=== PATIENT | male | born 1950 | race Caucasian/White ===

== ENCOUNTER 2020-12-18 13:55 | Emergency (ER) | payer MEDICARE, OTHER ==
--- NOTE | 2020-12-18 14:16 | EDM.PDOC ---
ED HPI GENERAL MEDICAL PROBLEM - General Chief Complaint: Head Injury Stated Complaint: FELL OFF LADDER,HIT HEAD,LOST CONCIOUSNESS Time Seen by Provider: 12/18/20 13:56 Source of Information: Reports: Patient History Limitations: Reports: No Limitations - History of Present Illness INITIAL COMMENTS - FREE TEXT/NARRATIVE: 62-year-old male Past medical history not on blood thinners or anticoagulants presents for closed head injury. Patient was on the top of a ladder when the ladder slipped from underneath him causing him to fall backwards. He notes a laceration to his left elbow and back of his head. He thinks he may have had momentary loss of consciousness. No nausea or vomiting. He does endorse a headache in the back of his head. Denies any neck pain. Denies any vomiting. Denies any nausea. Denies abdominal pain. Elbow Pain Score (Numeric/FACES): 3 - Related Data Allergies Allergy/AdvReac Type Severity Reaction Status Date / Time albuterol Allergy Severe Anaphylactic Verified 12/18/20 14:43 Shock Home Meds: Home Meds . [No Known Home Meds] 12/18/20 [History] ED ROS GENERAL - Review of Systems Review Of Systems: Comprehensive ROS is negative, except as noted in HPI. ED EXAM, HEAD INJURY - Physical Exam Exam: See Below Exam Limited By: No Limitations General Appearance: Alert, WD/WN, No Apparent Distress Head: Normocephalic, Other (4-cm linear laceration to posterior head) Nexus Criteria: No: Posterior, Midline Cervical Tenderness, Evidence of Intoxication, Altered Level of Consciousness, Focal Neurological Deficit, Painful Distraction Injuries Eyes: Bilateral Eye: EOMI, PERRL Ears: Hearing Grossly Normal Throat/Mouth: Normal Voice, No Airway Compromise Neck: Non-Tender Respiratory: No Respiratory Distress, Lungs Clear, Normal Breath Sounds, No Accessory Muscle Use Cardiovascular: Normal Peripheral Pulses, Regular Rate, Rhythm GI/Abdominal Exam: Soft, Non-Tender Back Exam: Normal Inspection. No: Paraspinal Tenderness, Vertebral Tenderness Extremities: Normal Range of Motion, Non-Tender, Other (1-cm laceration to L elbow) Neurologic: email specialist II-XII nml As Tested, No Motor/Sensory Deficits, Alert, Normal Mood/Affect, Oriented x 3. No: Abnormal Gait Course - Vital Signs Last Recorded V/S: Last Vital Signs Temp 97.4 F 12/18/20 14:44 Pulse 67 12/18/20 14:44 Resp 18 12/18/20 14:44 BP 113/74 12/18/20 14:44 Pulse Ox 96 12/18/20 14:44 - Orders/Labs/Meds Orders: Active Orders 24 hr Category Date Time Status Cervical Spine wo Cont [CT] Stat Exams 12/18/20 14:39 Taken Head wo Cont [CT] Stat Exams 12/18/20 14:39 Taken Meds: Medications Discontinued Medications Generic Name Dose Route Start Last Admin Trade Name Gabriella PRN Reason Stop Dose Admin Lidocaine/Epinephrine 20 ml 12/18/20 14:42 12/18/20 15:00 Lidocaine 1% With Epinephrine 1:100,000 20 Ml Mdv INJECT 12/18/20 14:43 20 ml ONETIME ONE Administration - Re-Assessments/Exams Free Text/Narrative Re-Assessment/Exam: 12/18/20 14:41 We will update patient's tetanus. Will repair lacerations. Get head CT and CT cervical spine. 12/18/20 17:[address] is unremarkable. Will discharge patient with return to the in 7 to 10 days for the suture removal. Departure - Departure Time of Disposition: 17:19 Disposition: Home, Self-Care 01 Condition: Good Clinical Impression: Laceration CHI (closed head injury) Qualifiers: Encounter type: initial encounter Qualified Code(s): S09.90XA - Unspecified injury of head, initial encounter - Discharge Information Instructions: Laceration Care, Adult, Head Injury, Adult Referrals: Terence Salcido MD [Primary Care Provider] - Forms: ED Department Discharge Additional Instructions: Please return to the emergency department or your primary care physician in 7 to 10 days to have the scott and sutures removed. The following information is given to patients seen in the emergency department who are being discharged to home. This information is to outline your options for follow-up care. We provide all patients seen in our emergency department with a follow-up referral. The need for follow-up, as well as the timing and circumstances, are variable depending upon the specifics of your emergency department visit. If you don't have a primary care physician on staff, we will provide you with a referral. We always advise you to contact your personal physician following an emergency department visit to inform them of the circumstance of the visit and for follow-up with them and/or the need for any referrals to a consulting specialist. The emergency department will also refer you to a specialist when appropriate. This referral assures that you have the opportunity for follow-up care with a specialist. All of these measure are taken in an effort to provide you with optimal care, which includes your follow-up. Under all circumstances we always encourage you to contact your private physician who remains a resource for coordinating your care. When calling for follow-up care, please make the office aware that this follow-up is from your recent emergency room visit. If for any reason you are refused follow-up, please contact the [facility] Emergency Department at and asked to speak to the emergency department charge nurse. Please follow up with your primary care physician. If you do not have a primary care physician, see below: [facility] [address] [place] [id number] [facility] [address] [place] [address] [id number] [facility] [address] [place] [id number] Sepsis Event Note (ED) - Focused Exam Vital Signs: Vital Signs Temp Pulse Resp BP Pulse Ox 12/18/20 14:44 97.4 F 67 18 113/74 96 - My Orders Last 24 Hours: My Active Orders 12/18/20 14:39 Cervical Spine wo Cont [CT] Stat Head wo Cont [CT] Stat - Assessment/Plan Last 24 Hours: My Active Orders 12/18/20 14:39 Cervical Spine wo Cont [CT] Stat Head wo Cont [CT] Stat
[2020-12-18] MEDS ORDERED: Lidocaine 1% with EPINEPHrine 1:100,000 20 ML MDV INJECT ONE (14:42)
--- NOTE | 2020-12-18 17:19 | CT ---
INDICATION: Status post fall with loss of consciousness. COMPARISON: None available. TECHNIQUE: CT examination of the head was performed with 5 slight axial and 2.5 millimeter thick sagittal and coronal mm thick axial sections without intravenous contrast. Images were obtained from the vertex of the skull through the skull base, and I examined the images with the brain and bone windows. Please note that all CT scans at this facility use dose modulation, iterative reconstruction, and/or weight-based dosing when appropriate to reduce radiation dose to as low as reasonably achievable. FINDINGS: : There is mild soft tissue swelling and contusion in the midline of the high occipital region where there are surgical skin scott. There is no sign of injury to the underlying calvarium or underlying brain. The brain is normal in appearance for the patient`s age on today`s study, with no sign of mass lesion, mass effect, hemorrhage, or edema. There is mild dilatation of the ventricles and sulci representing mild, age-appropriate atrophy. The visualized portions of the orbits are normal in appearance. The visualized portions of the paranasal sinuses and mastoids are clear. The osseous structures are normal in their appearance with no sign of abnormality in the skull base or calvarium. IMPRESSION: Mild soft tissue contusion in the midline of the occipital region superiorly, with no sign of injury to the underlying calvarium or brain. No sign of closed head injury. Normal CT appearance of the brain for the patient`s age. Please note that all CT scans at this facility use dose modulation, iterative reconstruction, and/or weight-based dosing when appropriate to reduce radiation dose to as low as reasonably achievable. Dictated by Nate Navarro MD @ 12/18/2020 5:17:[address] Nate Navarro @ Dec 18 2020 5:17PM
--- NOTE | 2020-12-18 17:23 | CT ---
INDICATION: Status post fall with loss of consciousness. COMPARISON: None available TECHNIQUE: CT examination of the cervical spine is performed without contrast using spiral technique. 2 mm thick axial, sagittal and coronal reconstructions were made. Please note that all CT scans at this facility use dose modulation, iterative reconstruction, and/or weight-based dosing when appropriate to reduce radiation dose to as low as reasonably achievable. FINDINGS: : There is severe disc degenerative disease at C5-6 and C6-7 with prominent loss of disc height, mild diffuse disc bulging, and posterior osteophytic ridging. There is moderate left foraminal stenosis at this level from uncovertebral joint hypertrophy. The right neural foramina are patent. There is mild loss of C5 and C6 vertebral body height which is probably related to the severe disc degenerative disease. The rest of the cervical vertebral bodies are normal in height. There is grade 1 anterior subluxation of C4 on C5 which is probably degenerative, associated with moderate left and mild right facet arthropathy. There is mild C4-5 disc degenerative disease. The rest of the cervical vertebral bodies are in anatomic alignment. There is severe C7-T1 disc degenerative disease with minimal diffuse disc bulging and posterior osteophytic ridging. There is minimal foraminal stenosis from uncovertebral joint hypertrophy. There is mild C3-4 disc degenerative disease with mild diffuse disc bulging. There is moderate bilateral foraminal stenosis from uncovertebral joint hypertrophy. There is fusion of C2 on C3 and anatomic alignment, with fusion of the left facet joint and partial fusion of the anterior and posterior disc space. There is no sign of prevertebral soft tissue swelling. The airway structures are normal in appearance. The visualized skull base is normal in appearance. The visualized inferior brain is normal in appearance for the patient`s age. The apices of the lungs are clear. IMPRESSION: No sign of acute osseous injury to the cervical spine. Mild loss of C5 and C6 vertebral body height probably related to severe C5-6 and C6-7 disc degenerative disease. Minimal anterior subluxation of C4 on C5 which is probably degenerative. Additional degenerative changes as described above. Please note that all CT scans at this facility use dose modulation, iterative reconstruction, and/or weight-based dosing when appropriate to reduce radiation dose to as low as reasonably achievable. Dictated by Nate Navarro MD @ 12/18/2020 5:22:[address] Nate Navarro @ Dec 18 2020 5:22PM
== END 2020-12-18 17:30 | disposition home or self-care (01) ==
LOC: MW.ED 13:55
DX: S01.81XA Laceration without foreign body of other part of head, initial encounter (principal); S51.012A Laceration without foreign body of left elbow, initial encounter; Z88.8 Allergy status to other drugs, medicaments and biological substances; W11.XXXA Fall on and from ladder, initial encounter
CPT/HCPCS: 12002; 70450; 70450-26; 72125; 72125-26; 99283-25